=== PATIENT | male | born 1995 | race Caucasian/White ===

== ENCOUNTER 2017-01-26 13:38 | Emergency (ER) ==
[2017-01-26 13:45] VITALS: BP 159/87; TEMP 98.4; BMI 25.8
[2017-01-26] MEDS ORDERED: KEFLEX PO STA (13:57)
[2017-01-26] MEDS ORDERED: TORADOL IM STA (13:57)
--- NOTE | 2017-01-26 13:59 | ED.PDOC ---
General ED Provider: Dr. LIANNE BO Chief Complaint: Bite Stated Complaint: swelling at butt hole, i think i have a spider bite. Time Seen by Physician: 13:57 Mode of Arrival: Walk-In Information Source: Patient Nursing and Triage Documentation Reviewed and Agree: Yes Skin Complaint Exam - Skin/Soft Tissue Complaint/Exam Symptoms Are: Still present Timing: Constant Initial Severity: Moderate Current Severity: Moderate Character: Reports: Redness, Swelling, Raised, Painful Aggravating: Reports: None Alleviating: Reports: None Associated Signs and Symptoms: Reports: Tenderness, Red streaks. Denies: Fever , Chills, Itching, Drainage, Bruising, Joint swelling Related Surgical History: Reports: None Skin Findings: Present: Erythema. Absent: Induration, Fluctuant mass Differential Diagnoses: Cellulitis, Other (hemorrhiods) Review of Systems - Review Of Systems Constitutional: Reports: No symptoms Eyes: Reports: No symptoms Ears, Nose, Mouth, Throat: Reports: No symptoms Respiratory: Reports: No symptoms Cardiac: Reports: No symptoms GI: Reports: No symptoms : Reports: No symptoms Musculoskeletal: Reports: No symptoms Skin: Reports: No symptoms Neurological: Reports: No symptoms Endocrine: Reports: No symptoms Hematologic/Lymphatic: Reports: No symptoms All Other Systems: Reviewed and Negative Past Medical History - Past Medical History Previously Healthy: Yes Endocrine: Reports: None Cardiovascular: Reports: None Respiratory: Reports: None Hematological: Reports: None Gastrointestinal: Reports: None Genitourinary: Reports: None Neuro/Psych: Reports: None Musculoskeletal: Reports: None Cancer: Reports: None - Surgical History General Surgical History: Reports: None - Family History Family History: Reports: None - Social History Smoking Status: Current every day smoker, Heavy tobacco smoker Smoking Cessation Counseling Time: > 3 min - 10 min Hx Substance Use: Yes (MARIJUANA) Alcohol Screening: Occasionally - Immunizations Tetanus Shot up to Date: No Physical Exam - Physical Exam Appearance: Well-appearing, No pain distress, Well-nourished Eyes: LINO, EOMI, Conjunctiva clear ENT: Ears normal, Nose normal, Oropharynx normal Respiratory: Airway patent, Breath sounds clear, Breath sounds equal, Respirations nonlabored Cardiovascular: RRR, Pulses normal, No rub, No murmur GI/: Soft (rectal exam, external hemorroid 6 o clock psosition, swollen tender.), Nontender, No masses, Bowel sounds normal, No Organomegaly Musculoskeletal: Normal strength, ROM intact, No edema, No calf tenderness Skin: Warm, Dry, Normal color Neurological: Sensation intact, Motor intact, Reflexes intact, Cranial nerves intact, Alert, Oriented Psychiatric: Affect appropriate, Mood appropriate Critical Care Note - Critical Care Note Total Time (mins): 0 Course - Course Orders, Labs, Meds: Orders Category Date Time Status Cephalexin [Keflex] MEDS 01/26/17 13:57 Stat 500 mg PO ONCE STA Ketorolac Tromethamine [Toradol] MEDS 01/26/17 13:57 Stat 60 mg IM ONCE STA Vital Signs: Temp Pulse Resp BP Pulse Ox 01/26/17 13:39 98.4 F 94 H 16 159/87 H 98 Departure - Departure Time of Disposition: 14:04 Disposition: HOME SELF-CARE Discharge Problem: External hemorrhoid Instructions: Hemorrhoids (ED) Condition: Stable Pt referred to PMD for follow-up: Yes Additional Instructions: INCREASE FIBRE DIET 'F/U AT [facility] IN 2-3 DAYS Prescriptions: Cephalexin [Keflex] 500 mg PO Q12HR #20 capsule Hydrocortisone [Anusol-Hc] 30 gm RC TID #20 cream..g. Hydrocortisone [Anusol-Hc] 30 gm RC TID #20 cream..g. Allergies/Adverse Reactions: Allergies No Known Allergies Allergy (Unverified 01/26/17 13:45) Home Medications: Ambulatory Orders Cephalexin [Keflex] 500 mg PO Q12HR #20 capsule 01/26/17 Hydrocortisone [Anusol-Hc] 30 gm RC TID #20 cream..g. 01/26/17 Hydrocortisone [Anusol-Hc] 30 gm RC TID #20 cream..g. 01/26/17 Disposition Discussed With: Patient
== END 2017-01-26 14:24 | disposition home or self-care (01) ==
LOC: ED 13:38
DX: K64.4 Residual hemorrhoidal skin tags (principal); F17.210 Nicotine dependence, cigarettes, uncomplicated
CPT/HCPCS: 96372; 99282

== ENCOUNTER 2018-08-29 15:33 | Emergency (ER) ==
[2018-08-29 15:43] VITALS: BP 152/79; TEMP 98.6; BMI 28.1
--- NOTE | 2018-08-29 16:18 | ED.PDOC ---
General ED Provider: Dr. DAVID SEGURA Chief Complaint: Ankle Pain/Injury Stated Complaint: Lt Ankle Pain. Jumped off porch onto sidewalk and twisted- Rolled lt ankle. Walks with a limp. Painful to put pressure on foot and ambulate. Pain 8/10 Time Seen by Physician: 16:10 Mode of Arrival: Walk-In Information Source: Patient Exam Limitations: Clinical condition Primary Care Provider: GABE CORREIA Nursing and Triage Documentation Reviewed and Agree: Yes Does patient meet sepsis criteria?: No System Inflammatory Response Syndrome: Not Applicable Sepsis Protocol: For patient's 13 years and over: Temp is 96.8 and below OR 101 and greater Pulse >90 BPM Resp >20/minute Acutely Altered Mental Status Are patient's symptoms suggestive of a new infection, such as: -Pneumonia -Skin, Soft Tissue -Endocarditis -UTI -Bone, Joint Infection -Implantable Device -Acute Abdominal Infection -Wound Infection -Meningitis -Blood Stream Catheter Infection -Unknown Musculoskeletal Complaint Exam - Ankle/Foot Complaint/Exam Location of Injury: Reports: Left, Ankle Mechanism of Injury: Reports: Trauma Onset/Duration: 30min ago Symptoms Are: Reports: Still present Onset of Pain: Reports: Immediate Initial Severity: Moderate Current Severity: Moderate Location: Reports: Diffuse Character: Reports: Sharp, Aching, Throbbing Alleviating: Reports: Rest, Position Aggravating: Reports: Movement Able to Bear Weight: No Associated Signs and Symptoms: Reports: Swelling Differential Diagnosis: Closed Fracture, Sprain, Strain Review of Systems - Review Of Systems Constitutional: Reports: No symptoms Eyes: Reports: No symptoms Ears, Nose, Mouth, Throat: Reports: No symptoms Respiratory: Reports: No symptoms Cardiac: Reports: No symptoms GI: Reports: No symptoms : Reports: No symptoms Musculoskeletal: Reports: No symptoms Skin: Reports: No symptoms Neurological: Reports: No symptoms Endocrine: Reports: No symptoms Hematologic/Lymphatic: Reports: No symptoms All Other Systems: Reviewed and Negative Past Medical History - Past Medical History Previously Healthy: Yes Endocrine: Reports: None Cardiovascular: Reports: None Respiratory: Reports: None Hematological: Reports: None Gastrointestinal: Reports: None Genitourinary: Reports: None Neuro/Psych: Reports: None Musculoskeletal: Reports: None Cancer: Reports: None - Surgical History General Surgical History: Reports: None - Family History Family History: Reports: None - Social History Smoking Status: Current every day smoker, Heavy tobacco smoker Hx Substance Use: Yes (MARIJUANA in past) Alcohol Screening: Occasionally - Immunizations Tetanus Shot up to Date: Yes Physical Exam - Physical Exam Appearance: Obese Ill-appearing: None Pain Distress: Moderate Eyes: LINO, EOMI, Conjunctiva clear ENT: Ears normal, Nose normal, Oropharynx normal Neck: Supple Respiratory: Airway patent, Breath sounds clear, Breath sounds equal, Respirations nonlabored Cardiovascular: RRR, Pulses normal, No rub, No murmur GI/: Soft, Nontender, No masses, Bowel sounds normal, No Organomegaly Musculoskeletal: Normal strength, No edema, No calf tenderness, Limited ROM Skin: Warm, Dry, Normal color Neurological: Sensation intact, Motor intact, Reflexes intact, Cranial nerves intact, Alert, Oriented Interpretation - Radiology Interpretation Radiology Interpretation By: Radiologist Exam Interpreted: Other (ankle [id number]) Critical Care Note - Critical Care Note Total Time (mins): 0 Course - Course Orders, Labs, Meds: Orders Category Date Time Status Air cast [ED SPLINT APPLICATION] .ONCE EMERGENCY 08/29/18 16:59 Ordered CRUTCHES [ED CRUTCHES] .ONCE EMERGENCY 08/29/18 16:59 Ordered Ketorolac Tromethamine [Toradol] MEDS 08/29/18 16:20 Discontinued 30 mg IM ONCE STA ANKLE, LEFT MIN 3 VIEWS Stat RADS 08/29/18 16:26 Completed Medications Discontinued Medications Generic Name Dose Route Start Last Admin Trade Name Freq PRN Reason Stop Dose Admin Ketorolac Tromethamine 30 mg 08/29/18 16:20 08/29/18 16:28 Toradol IM 08/29/18 16:21 Not Given ONCE STA Vital Signs: Temp Pulse Resp BP Pulse Ox 08/29/18 15:35 98.6 F 84 18 152/79 H 97 Departure - Departure Time of Disposition: 16:50 Disposition: HOME SELF-CARE Discharge Problem: Left ankle sprain Instructions: Ankle Sprain (ED), Ankle Stirrup Splint (ED) Condition: Good Pt referred to PMD for follow-up: Yes IPMP verified?: No Additional Instructions: Ice Elevate and minimize up ambulaton for next 24-48 hours. Crutches Motrin for pain Prescriptions: Ibuprofen 400 mg PO QID PRN #30 tablet PRN Reason: ankle pain Allergies/Adverse Reactions: Allergies No Known Allergies Allergy (Verified 08/29/18 15:43) Home Medications: Ambulatory Orders Ibuprofen 400 mg PO QID PRN #30 tablet 08/29/18 Disposition Discussed With: Patient
[2018-08-29] MEDS ORDERED: TORADOL IM STA (16:20)
--- NOTE | 2018-08-29 16:44 | DI ---
EXAM: Left ankle. Three-view HISTORY: Injury, pain, fell COMPARISON: None FINDINGS: The bones are normal. Ankle mortise is symmetric. No focal soft tissue abnormality. IMPERSSION: Normal examination.
== END 2018-08-29 17:23 | disposition home or self-care (01) ==
LOC: ED 15:33
DX: S93.402A Sprain of unspecified ligament of left ankle, initial encounter (principal); X50.1XXA Overexertion from prolonged static or awkward postures, initial encounter; F17.210 Nicotine dependence, cigarettes, uncomplicated
CPT/HCPCS: 99283

== ENCOUNTER 2018-12-29 12:58 | Emergency (ER) ==
[2018-12-29 13:11] VITALS: BP 129/77; TEMP 99.1; BMI 28.3
== END 2018-12-29 13:30 | disposition left against medical advice (07) ==
LOC: ED 12:58
DX: S69.91XA Unspecified injury of right wrist, hand and finger(s), initial encounter (principal)
CPT/HCPCS: 99282

== ENCOUNTER 2018-12-30 14:53 | Emergency (ER) ==
[2018-12-30 14:57] VITALS: BP 122/78; TEMP 98.2; BMI 28.1
--- NOTE | 2018-12-30 16:18 | ED.PDOC ---
General ED Provider: Dr. DAVID SEGURA Chief Complaint: Wrist Pain/Injury Stated Complaint: Rt wrist pain. Jammed wrist against his pit bull.. States can not lift boxes at work due to pain along rt mid radial carpal joint. No known injury Time Seen by Physician: 15:45 Mode of Arrival: Walk-In Information Source: Patient Exam Limitations: No limitations Nursing and Triage Documentation Reviewed and Agree: Yes Does patient meet sepsis criteria?: No System Inflammatory Response Syndrome: Not Applicable Sepsis Protocol: For patient's 13 years and over: Temp is 96.8 and below OR 101 and greater Pulse >90 BPM Resp >20/minute Acutely Altered Mental Status Are patient's symptoms suggestive of a new infection, such as: -Pneumonia -Skin, Soft Tissue -Endocarditis -UTI -Bone, Joint Infection -Implantable Device -Acute Abdominal Infection -Wound Infection -Meningitis -Blood Stream Catheter Infection -Unknown Musculoskeletal Complaint Exam - Hand/Wrist Complaint/Exam Location of Pain: Reports: Right, Wrist Mechanism of Injury: Reports: Trauma Onset/Duration: several days Symptoms Are: Still present Onset of Pain: Reports: Immediate, Post accident Initial Severity: Moderate Current Severity: Mild Location: Reports: Discrete (dorsum of wrist ) Character: Reports: Aching, Stiffness, Burning Alleviating: Reports: None Aggravating: Reports: Movement Associated Signs and Symptoms: Denies: Swelling, Redness, Bruising, Fever, Weakness, Numbness, Tingling Dominant Hand: Right Related Surgical History: Reports: None Hand/Wrist Findings: Absent: Swelling, Ecchymosis, Abnormal contour, Rotation, Ligamentous instability, Tinel's Sign, Phalen's Sign Tenderness: Present: Metacarpal Differential Diagnoses: Closed Fracture, Strain Review of Systems - Review Of Systems Constitutional: Reports: No symptoms Eyes: Reports: No symptoms Ears, Nose, Mouth, Throat: Reports: No symptoms Respiratory: Reports: No symptoms Cardiac: Reports: No symptoms GI: Reports: No symptoms : Reports: No symptoms Musculoskeletal: Reports: No symptoms, Joint pain Skin: Reports: No symptoms Neurological: Reports: No symptoms Endocrine: Reports: No symptoms Hematologic/Lymphatic: Reports: No symptoms All Other Systems: Reviewed and Negative Past Medical History - Past Medical History Previously Healthy: Yes Endocrine: Reports: None Cardiovascular: Reports: None Respiratory: Reports: None Hematological: Reports: None Gastrointestinal: Reports: None Genitourinary: Reports: None Neuro/Psych: Reports: None Musculoskeletal: Reports: None Cancer: Reports: None - Surgical History General Surgical History: Reports: None - Family History Family History: Reports: None - Social History Smoking Status: Current every day smoker, Heavy tobacco smoker Hx Substance Use: Yes (MARIJUANA in past) Alcohol Screening: Occasionally Physical Exam - Physical Exam Appearance: Well-appearing, No pain distress, Well-nourished Eyes: LINO, EOMI, Conjunctiva clear ENT: Ears normal, Nose normal, Oropharynx normal Respiratory: Airway patent, Breath sounds clear, Breath sounds equal, Respirations nonlabored Cardiovascular: RRR, Pulses normal, No rub, No murmur GI/: Soft, Nontender, No masses, Bowel sounds normal, No Organomegaly Musculoskeletal: Normal strength, ROM intact (painful to exam rt wrist and radial carpal joint), No edema, No calf tenderness Skin: Warm, Dry, Normal color Neurological: Sensation intact, Motor intact, Reflexes intact, Cranial nerves intact, Alert, Oriented Psychiatric: Affect appropriate, Mood appropriate Critical Care Note - Critical Care Note Total Time (mins): 0 Course - Course Orders, Labs, Meds: Orders Category Date Time Status Wrist splint [ED SPLINT APPLICATION] .ONCE EMERGENCY 12/30/18 18:19 Ordered WRIST, RIGHT 3 VIEWS Stat RADS 12/30/18 16:04 Completed Vital Signs: Temp Pulse Resp BP Pulse Ox 12/30/18 14:53 98.2 F 79 16 122/78 95 Departure - Departure Time of Disposition: 18:15 Disposition: HOME SELF-CARE Discharge Problem: Strain of wrist, right Instructions: Muscle Strain (ED), Musculoskeletal Pain (ED) Condition: Good Pt referred to PMD for follow-up: Yes IPMP verified?: No Additional Instructions: Wrist splint Ice and elevated Ibuprofen for pain Avoid strenuous activity for next 48 hr Prescriptions: Ibuprofen [Ibu] 600 mg PO QID #20 tablet Allergies/Adverse Reactions: Allergies No Known Allergies Allergy (Verified 12/30/18 15:25) Home Medications: Ambulatory Orders Ibuprofen [Ibu] 600 mg PO QID #20 tablet 12/30/18
--- NOTE | 2018-12-30 16:23 | DI ---
EXAM: Right wrist three-view HISTORY: Painful right wrist COMPARISON: None FINDINGS: The bones are normal. The joints are normal. No focal soft tissue abnormality. IMPERSSION: Normal examination.
== END 2018-12-30 18:39 | disposition home or self-care (01) ==
LOC: ED 14:53
DX: S66.911A Strain of unspecified muscle, fascia and tendon at wrist and hand level, right hand, initial encounter (principal); W22.8XXA Striking against or struck by other objects, initial encounter; F17.210 Nicotine dependence, cigarettes, uncomplicated
CPT/HCPCS: 99283